=== PATIENT | female | born 1980 | race Caucasian/White ===

== ENCOUNTER 2019-02-13 05:10 | Day surgery (SDC) | payer OTHER ==
[~2019-02-13] VITALS: Ht 165.1 cm; Wt 66.9 kg
--- NOTE | 2019-02-13 06:48 | NUR ---
RN ADMITTING/DAY SURGERY NOTES Pt ARRIVED TO THE FLOOR ON FOOT WITH STEADY GAIT. NO S/S OF ACUTE DISTRESS OR SOB NOTED. Pt IS A/OX4, VERBAL, ABLE TO MAKE NEEDS KNOWN. AT BEDSIDE. Pt IS HERE FOR DAY SURGERY FOR MICRODISCECTOMY L5-S1 (LUMBAR) WITH DR. BURNETTE. IV ACCESS STARTED ON LAC #18G, SL. CONSENT FORM SIGNED. CHECKLIST DONE, PLACED IN CHART. CALLED DR. BURNETTE TO CLARIFY PRE-EMPTIVE ANESTHESIA/PRE-OP ORDERS. NO ANSWER. WILL ENDORSE TO DAYSHIFT RN TO FOLLOW UP WITH DR. BURNETTE. SAFETY MEASURES IN PLACE. BED LOW, LOCKED, HOB ELEVATED, SIDE RAILS UP, CALL LIGHT AND BEDSIDE TABLE WITHIN REACH. WILL CONTINUE TO MONITOR Pt's CONDITION AND SAFETY.
[2019-02-13] MEDS ORDERED: LIDOCAINE HCL/MPF 1% 30 ML VIAL IJ ONE (07:11)
[2019-02-13] MEDS ORDERED: CEFAZOLIN 1 GM ONE (07:11)
[2019-02-13] MEDS ORDERED: METHYLENE BLUE 10 ML VIAL ONE (07:11)
[2019-02-13] MEDS ORDERED: BUPIVACAINE MPF 0.5% W/EPI INJ 30 ML VIAL ONE (07:11)
[2019-02-13] MEDS ORDERED: methylPREDNISolone ACETATE 80 MG/ML VIAL ONE (07:12)
[2019-02-13 07:16] VITALS: BP 116/70
[2019-02-13] MEDS ORDERED: HEMOSTATIC MATRIX 8 ML 1 EACH PAD MC ONE (07:18)
[2019-02-13] MEDS ORDERED: FENTANYL PF 250MCG/5ML AMPUL ONE ×2 (07:21)
[2019-02-13] MEDS ORDERED: MIDAZOLAM HCL 2 MG/2ML VIAL ONE (07:21)
[2019-02-13] MEDS ORDERED: ROCURONIUM BROMIDE 50 MG/5 ML ONE (07:22)
[2019-02-13] MEDS ORDERED: FAMOTIDINE/PF INJ 20 MG/2 ML VIAL IV ONE (07:22)
[2019-02-13] MEDS ORDERED: MEPERIDINE HCL/PF 100 MG/ML DISP.SYRIN ONE (07:22)
[2019-02-13] MEDS ORDERED: oxyCODONE HCL SR 20MG TAB.SR.12H PO ONE (07:30)
[2019-02-13] MEDS ORDERED: CELECOXIB 100 MG CAPSULE PO ONE (07:30)
[2019-02-13] MEDS ORDERED: ACETAMINOPHEN 325 MG TABLET PO ONE (07:30)
[2019-02-13] MEDS ORDERED: GABAPENTIN 300 MG CAPSULE PO ONE (07:30)
[2019-02-13] MEDS ORDERED: KETOROLAC TROMETHAMINE INJ 30 MG/ML VIAL IV ONE (07:30)
--- NOTE | 2019-02-13 07:30 | NUR ---
RN CLOSING NOTES Pt LEFT FLOOR FOR OR; TAKEN BY [employer] TECHNICIAN AND FLOOR RN, JOSE ALBERTO. Pt IS A/OX4. NO S/S OF ACUTE DISTRESS OR SOB NOTED. VS STABLE. ALL PRE-OP MEDS GIVEN PER MD ORDER. LR TO BE GIVEN IN OR. SAFETY MEASURES IN PLACE. WILL ENDORSE TO DAYSHIFT RN FOR Pt's LANIE.
[2019-02-13 07:33] VITALS: BP 116/70
--- NOTE | 2019-02-13 11:01 | NUR ---
MS RN RECEIVED PATIENT FROM RECOVERY, AWAKE,ALERT,ORIENTED X4,NOT IN ANY FORM OF DISTRESS, RESPIRATIONS EVEN AND UNLBORED,NO SOB NOTED, DENIES PAIN AT THIS TIME, WILL MONITOR AT THIS ITME.
[2019-02-13] MEDS ORDERED: oxyCODONE/APAP (5/325 MG) 1 UDTAB TABLET PO PRN ×2 (13:00)
--- NOTE | 2019-02-13 13:00 | NUR ---
ms rn patient was been stable and will be discharge soon.
--- NOTE | 2019-02-13 14:20 | NUR ---
ms assembler corncob pipes instructions given and understood, discharge home,all needs attended.
== END 2019-02-13 16:00 | disposition home or self-care (01) ==
LOC: SURGERY 05:10 → MED 05:19 → UNDOADMIN 05:19 → UNDODISIN 14:45 → SURGERY 16:00
PROVIDERS: ATTEND Specialist
DX: G89.29 Other chronic pain (principal); M54.5 Low back pain; Z98.890 Other specified postprocedural states
CPT/HCPCS: 62323; 63030; 72020; 84703; 87081; 88304; 88311; A6402; J0690 ×2; J1040; J1100; J1885; J2175; J2250; J2405; J2704; J2765; J3010 ×2; J3490 ×4; Q9968; G0378